=== PATIENT | female | born 1975 ===

== ENCOUNTER 2018-09-08 07:43 | Outpatient (CLI) | payer OTHER | END 2018-09-08 07:52 | disposition home or self-care (01) | LOC: SONOGRAMA 07:43 | DX: E04.1 Nontoxic single thyroid nodule (principal) ==

== ENCOUNTER 2023-08-08 10:10 | Outpatient (CLI) | payer OTHER | END 2023-08-08 10:15 | disposition home or self-care (01) | LOC: SONOGRAMA 10:10 | PROVIDERS: ATTEND Student in an Organized Health Care Education/Training Program | DX: E04.1 Nontoxic single thyroid nodule (principal) ==

== ENCOUNTER → 2023-10-25 09:42 | Outpatient (CLI) | payer OTHER ==
[2023-10-25 11:21] LABS: ALBUMIN 3.7 gm/dL (3.4-5.0); BILIRUBIN TOTAL 0.44 mg/dL (0.3-1.2); CALCIUM 9.2 mg/dL (8.5-10.1); CREATININE SERUM 0.64 mg/dL (0.55-1.02); GFR 99.04; GLOBULINA 3.8 G/DL (2.4-3.5); POTASSIUM 4.13 mEq/L (3.5-5.1); T4 FREE 0.93 NG/ML (0.76-1.46); TOTAL PROTEIN 7.5 gm/dL (6.4-8.2); TSH 1.63 uIU/mL (0.358-3.74)
== END | disposition home or self-care (01) ==
LOC: LAB 09:42
PROVIDERS: ATTEND Student in an Organized Health Care Education/Training Program
DX: E78.2 Mixed hyperlipidemia (principal); I10 Essential (primary) hypertension; E03.8 Other specified hypothyroidism; C73 Malignant neoplasm of thyroid gland

== ENCOUNTER 2023-11-21 12:14 | Outpatient (CLI) | payer OTHER | END 2023-11-21 12:17 | disposition home or self-care (01) | LOC: RAD 12:14 | DX: R05.9 Cough, unspecified (principal) ==

== ENCOUNTER 2024-07-27 10:07 | Outpatient (CLI) | payer OTHER ==
[2024-07-27 10:42] LABS: PH,URINE 6.5 (5.0-8.0); URINE APPEARANCE Clear; URINE BILIRRUBIN Negative (NEGATIVE); URINE BLOOD Negative; URINE COLOR Yellow; URINE GLUCOSE Negative (NEGATIVE); URINE KETONE Negative (NEGATIVE); URINE LEUKOCYTE Small; URINE NITRATE Negative; URINE PROTEIN Negative (NEGATIVE); URINE UROBILINOGEN 0.2 E.U./dl
[2024-07-27 10:46] LABS: URINE BACTERIA 2072.9 uL (0.0-1933); URINE EPITHELIAL CELLS 78.9 uL (0.0-38.8); URINE RBC 5.3 uL (0.0-20.8)
[2024-07-27 10:49] LABS: URINE CAST 0.73 uL (0.0-1.40)
[2024-07-27 11:02] LABS: HEMATOCRIT 39.2 % (36.0-45.00); HEMOGLOBIN 12.9 g/dL (12.0-15.00); MEAN CELL VOLUME 88.8 fL (80.00-100.00); MEAN CORPUSCULAR HEMOGLOBIN 29.3 pg (27.00-32.0); PLATELET COUNT 233 K/uL (150-450); RED BLOOD COUNT 4.41 M/uL (4.00-6.00); RED CELL DISTRIBUTION WIDTH 13.2 % (11.5-14.5)
[2024-07-27 11:53] LABS: CALCIUM 8.7 mg/dL (8.5-10.1); CREATININE SERUM 0.66 mg/dL (0.55-1.02); GFR 95.59; POTASSIUM 4.05 mEq/L (3.5-5.1)
== END 2024-07-27 10:08 | disposition home or self-care (01) ==
LOC: LAB 10:07
PROVIDERS: ATTEND General Practice
DX: N39.0 Urinary tract infection, site not specified (principal); R10.11 Right upper quadrant pain

== ENCOUNTER 2024-07-27 10:33 | Outpatient (CLI) | payer OTHER | END 2024-07-27 10:43 | disposition home or self-care (01) | LOC: RAD 10:33 | PROVIDERS: ATTEND General Practice | DX: R10.11 Right upper quadrant pain (principal); E04.1 Nontoxic single thyroid nodule ==

== ENCOUNTER 2024-10-19 09:47 | Outpatient (CLI) | payer OTHER ==
[2024-10-19 10:46] LABS: HEMATOCRIT 39.9 % (36.0-45.00); HEMOGLOBIN 13.2 g/dL (12.0-15.00); MEAN CELL VOLUME 88.7 fL (80.00-100.00); MEAN CORPUSCULAR HEMOGLOBIN 29.4 pg (27.00-32.0); MEAN CORPUSCULAR HGB CONC 33.1 g/dl (32.0-36.0); PLATELET COUNT 275 K/uL (150-450); RED BLOOD COUNT 4.49 M/uL (4.00-6.00); RED CELL DISTRIBUTION WIDTH 13.2 % (11.5-14.5)
[2024-10-19 10:56] LABS: URINE APPEARANCE Clear; URINE BILIRRUBIN Negative (NEGATIVE); URINE BLOOD Negative; URINE COLOR Yellow; URINE GLUCOSE Negative (NEGATIVE); URINE KETONE Negative (NEGATIVE); URINE LEUKOCYTE Small; URINE NITRATE Negative; URINE PROTEIN Negative (NEGATIVE); URINE UROBILINOGEN 0.2 E.U./dl
[2024-10-19 10:57] LABS: URINE BACTERIA 3780.4 uL (0.0-1933); URINE EPITHELIAL CELLS 50.4 uL (0.0-38.8); URINE WBC 95.6 uL (0.0-23.2)
[2024-10-19 11:13] LABS: URINE CAST 0.14 uL (0.0-1.40)
[2024-10-19 11:40] LABS: ALBUMIN 3.6 gm/dL (3.4-5.0); ALKALINE PHOSPHATASE 104 U/L (50-136); ALT/SGPT 19 U/L (12-78); ANION GAP 8 (10.0-20.0); AST/SGOT 17 U/L (15-37); BILIRUBIN TOTAL 0.56 mg/dL (0.3-1.2); BLOOD UREA NITROGEN 18 mg/dL (7-18); BUN CREA RATIO 31 (7.0-25.0); CALCIUM 8.4 mg/dL (8.5-10.1); CARBON DIOXIDE 29 mEq/L (21-32); CHLORIDE 103 mmol/L (98-107); CHOL HDL RATIO 3.6 (0-5.0); CHOLESTEROL 236 mg/dL (0-200); CREATININE SERUM 0.58 mg/dL (0.55-1.02); FREE TRIODOTIRONINE 2.65 pg/ml (2.18-3.98); GFR 110.49; GLOBULINA 3.8 G/DL (2.4-3.5); GLUCOSE FASTING 89 mg/dL (65-100); HDL 66 mg/dl (40-60); LDL 158 mg/dl (0-130); OSMOLALITY SERUM 273 MOSM/KG (275-295); POTASSIUM 3.87 mEq/L (3.5-5.1); SODIUM 136 mmol/L (136-145); T4 FREE 1.07 NG/ML (0.76-1.46); T4 TOTAL 9.37 UG/DL (4.8-13.9); TOTAL PROTEIN 7.4 gm/dL (6.4-8.2); TRIGLYCERIDES 62 mg/dL (0-150); VLDL 12 (0-39)
[2024-10-19 11:43] LABS: C-REACTIVE PROTEIN < 0.29 MG/DL (0.00-0.29)
[2024-10-19 13:07] LABS: VITAMIN D3 25 HYDROXY 58.38 ng/ml (30-120)
[2024-10-20 09:05] LABS: ESTRADIOL SERUM 9.7 pg/mL (.); FOLLICLE STIMULATING HORMONE 48.5 mIU/mL (.); LEUTEINIZING HORMONE 37.9 mIU/mL (.); PROGESTERONA < 0.1 ng/mL (.)
== END 2024-10-19 09:53 | disposition home or self-care (01) ==
LOC: LAB 09:47
DX: E03.8 Other specified hypothyroidism (principal); E56.8 Deficiency of other vitamins; E55.9 Vitamin D deficiency, unspecified; E34.9 Endocrine disorder, unspecified; E78.2 Mixed hyperlipidemia; N91.1 Secondary amenorrhea; N95.8 Other specified menopausal and perimenopausal disorders; E16.2 Hypoglycemia, unspecified; Z13.1 Encounter for screening for diabetes mellitus; R30.0 Dysuria; D50.8 Other iron deficiency anemias

== ENCOUNTER 2024-10-19 10:21 | Outpatient (CLI) | payer OTHER | END 2024-10-19 10:22 | disposition home or self-care (01) | LOC: MAMO-SONO 10:21 | PROVIDERS: ATTEND Surgery | DX: N64.4 Mastodynia (principal); Z12.31 Encounter for screening mammogram for malignant neoplasm of breast ==

== ENCOUNTER 2025-05-03 06:51 | Outpatient (CLI) | payer OTHER ==
[2025-05-03 07:55] LABS: BASO % 0.5 % (0.1-1.2); EOS # 0.10 (0.04-0.54); EOS % 1.6 % (0.7-7.0); LYMPH # 1.89 (1.18-3.74); LYMPH % 29.5 % (19.3-53.1); MEAN PLATELET VOLUME 9.70 fl (9.4-12.4); MONO # 0.38 (0.24-0.82); MONO % 5.9 % (4.7-12.5); NEUT # 3.98 (1.56-6.13); NEUT % 62.2 % (34.0-71.1); RED CELL DISTRIBUTION WIDTH 13.0 % (11.6-14.4)
[2025-05-03 09:05] LABS: ALT/SGPT 31 U/L (12-78); AST/SGOT 49 U/L (15-37); BILIRUBIN TOTAL 0.98 mg/dL (0.3-1.2); BUN CREA RATIO 18 (7.0-25.0); CREATININE SERUM 0.72 mg/dL (0.55-1.02); FREE TRIODOTIRONINE 2.48 pg/ml (2.18-3.98); GFR 86.09; GLOBULINA 3.6 G/DL (2.4-3.5); GLUCOSE FASTING 102 mg/dL (65-100); HDL 58 mg/dl (40-60); OSMOLALITY SERUM 276 MOSM/KG (275-295); T4 FREE 0.58 NG/ML (0.76-1.46); T4 TOTAL 3.58 UG/DL (4.8-13.9); VLDL 23 (0-39)
[2025-05-03 09:06] LABS: CHOL HDL RATIO 4.4 (0-5.0); LDL 176 mg/dl (0-130); TSH 46.800 uIU/mL (0.358-3.74)
[2025-05-03 12:39] LABS: VITAMIN D3 25 HYDROXY 72.43 ng/ml (30-120)
[2025-05-04 10:35] LABS: ANTI THYROID PEROXIDASE 20.0 IU/mL (0-34); DHEA-SULFATE 104.0 ug/dL (41.2-243.7); ESTRADIOL SERUM 15.8 pg/mL (.); INSULIN LEVELS 11.1 uIU/mL (2.6-24.9); LEUTEINIZING HORMONE 35.3 mIU/mL (.); PROGESTERONA 0.1 ng/mL (.)
[2025-05-04 11:21] LABS: HOMOCYSTEINE 7.5 umol/L (0.0-14.5)
[2025-05-05 15:07] LABS: T T 13.0 ng/dL (4-50); test free 0.5 pg/mL (0.0-4.2)
== END 2025-05-03 06:58 | disposition home or self-care (01) ==
LOC: LAB 06:51
DX: E03.8 Other specified hypothyroidism (principal); E56.8 Deficiency of other vitamins; E55.9 Vitamin D deficiency, unspecified; E34.9 Endocrine disorder, unspecified; E78.2 Mixed hyperlipidemia; N95.1 Menopausal and female climacteric states; N91.1 Secondary amenorrhea; N95.8 Other specified menopausal and perimenopausal disorders; E16.2 Hypoglycemia, unspecified; E72.9 Disorder of amino-acid metabolism, unspecified; R79.82 Elevated C-reactive protein (CRP); Z13.1 Encounter for screening for diabetes mellitus; R30.0 Dysuria; D50.8 Other iron deficiency anemias

== ENCOUNTER 2025-05-10 10:31 | Outpatient (CLI) | payer OTHER | END 2025-05-10 10:34 | disposition home or self-care (01) | LOC: SONOGRAMA 10:31 | DX: E04.1 Nontoxic single thyroid nodule (principal) ==

== ENCOUNTER 2025-05-12 06:54 | Outpatient (CLI) | payer OTHER ==
[2025-05-12 09:09] LABS: ALT/SGPT 24.0 U/L (12-78); AST/SGOT 15.0 U/L (15-37); BILIRUBIN TOTAL 0.51 mg/dL (0.3-1.2); BUN CREA RATIO 21.0 (7.0-25.0); CHOL HDL RATIO 3.9 (0-5.0); CREATININE SERUM 0.73 mg/dL (0.55-1.02); GFR 84.73; GLOBULINA 3.5 G/DL (2.4-3.5); GLUCOSE FASTING 99.0 mg/dL (65-100); HDL 55.0 mg/dl (40-60); LDL 143.0 mg/dl (0-130); OSMOLALITY SERUM 282.0 MOSM/KG (275-295); T4 FREE 0.66 NG/ML (0.76-1.46); VLDL 16.0 (0-39)
[2025-05-12 09:10] LABS: TSH 26.4 uIU/mL (0.358-3.74)
== END 2025-05-12 06:55 | disposition home or self-care (01) ==
LOC: LAB 06:54
PROVIDERS: ATTEND Student in an Organized Health Care Education/Training Program
DX: E11.65 Type 2 diabetes mellitus with hyperglycemia (principal); I10 Essential (primary) hypertension; E78.2 Mixed hyperlipidemia; E03.8 Other specified hypothyroidism; C73 Malignant neoplasm of thyroid gland

== ENCOUNTER 2025-07-15 08:01 | Outpatient (CLI) | payer OTHER ==
[2025-07-15 10:20] LABS: CHOL HDL RATIO 3.6 (0-5.0); HDL 65.0 mg/dl (40-60); LDL 159.0 mg/dl (0-130); T4 FREE 1.16 NG/ML (0.76-1.46); TSH 1.93 uIU/mL (0.358-3.74); VLDL 13.0 (0-39)
== END 2025-07-15 08:05 | disposition home or self-care (01) ==
LOC: LAB 08:01
DX: E03.9 Hypothyroidism, unspecified (principal); R94.5 Abnormal results of liver function studies; E06.3 Autoimmune thyroiditis; E78.5 Hyperlipidemia, unspecified